=== PATIENT | female | born 2000 | race Caucasian/White ===

== ENCOUNTER 2023-10-30 09:52 | Emergency (ER) | payer MEDICAID, SELFPAY ==
--- NOTE | ~2023-10-30 | XR_ITS ---
EXAMINATION: XR ANKLE, RIGHT CLINICAL INFORMATION: Fall on Sunday with right ankle pain COMPARISON: 02/16/2018 TECHNIQUE: AP, lateral, and mortise views of the right ankle. FINDINGS: There is soft tissue swelling present laterally. No fracture. Alignment is anatomic. No erosions. Joint spaces are maintained. No evidence of a definite ankle joint effusion. XR/XR ankle RT min 3V IMPRESSION: Soft tissue swelling laterally. No acute fractures.
[2023-10-30 10:08] VITALS: BP 126/82; PULSE 82; RESP 16; TEMP 36.6; O2SAT 100; BMI 21.6
--- NOTE | 2023-10-30 10:19 | ED_ITS ---
HPI - General Adult General Chief complaint: Extremity Injury, Lower Stated complaint: R ankle inj Time Seen by Provider: 10/30/23 10:19 Source: patient Mode of arrival: ambulatory Limitations: no limitations History of Present Illness HPI narrative: Patient is a 23 year old assigned female at with no reported medical history presenting to the emergency department today with right ankle pain. Patient states that 2 days ago she was at a wedding, in heels, when she rolled her right ankle. Patient denies any dizziness, lightheadedness, abdominal pain, nausea, vomiting, fever, chills, blurry vision, double vision, loss of vision, chest pain, difficulty breathing, shortness of breath, back pain, night sweats, pain with urination, increased urinary frequency, increased urinary urgency, blood in her urine or stool, syncope or a near syncopal episode, bowel incontinence, bladder incontinence, bowel retention, bladder retention, or any other complaints at this time. Onset (ago): day(s) (2) Location: right and lower extremity Severity: mild Severity scale (1-10): 3 Quality: aching and dull Pain Consistency: constant Relieving factors: none Exacerbating factors: movement Associated symptoms: denies other symptoms Treatments prior to arrival: none Related Data Allergies Allergy/AdvReac Type Severity Reaction Status Date / Time No Known Allergies Allergy Verified 10/30/23 10:11 [No Known Allergies*] Review of Systems Constitutional: Constitutional: Reports no additional constitutional complaints, Denies chills, Denies fever(s) and Denies night sweats Eyes: Eyes: Reports no additional eye complaints, Denies blurry vision, Denies change in vision, Denies diplopia, Denies eye discharge, Denies loss of vision and Denies eye pain ENT: Denies dizziness Cardiovascular: Cardiovascular: Reports no additional cardiovascular complaints, Denies chest pain, Denies lightheadedness, Denies Loss of Consciousness and Denies dyspnea Respiratory: Respiratory: Reports no additional respiratory complaints and Denies dyspnea Gastrointestinal: Gastrointestinal: Reports no additional gastrointestinal complaints, Denies abdominal pain, Denies melena, Denies hematochezia, Denies change in bowel habits and Denies change in stool character Genitourinary: Genitourinary: Denies hematuria, Denies urinary frequency, Denies dysuria, Denies urinary incontinence, Denies urinary hesitancy and Denies urinary urgency Musculoskeletal: Musculoskeletal: Reports no additional musculoskeletal complaints, Denies numbness and Denies tingling Comments: right ankle pain Neurologic: Denies dizziness, Denies loss of vision, Denies numbness and Denies tingling Psychiatric: Psychiatric: Reports no additional psychiatric complaints Endocrine: Endocrine: Reports no additional endocrine complaints Hematologic/Lymphatic: Hematologic/Lymphatic: Reports no additional hematologic/lymphatic complaints Allergic/Immunologic: Allergic/Immunologic: Reports no additional allergic/immunologic complaints PMFSH Past Medical History Attestation statement: The following information was validated with the patient. Source: old records reviewed and nursing notes reviewed Social History Social History Advance Directives: No Advance Directives Information Provided: Yes Physical Exam ED Vital Signs: Vital Signs - 24 hr 10/30/23 10:08 10/30/23 11:36 Temperature 97.8 F 98.9 F Pulse Rate 82 77 Respiratory Rate 16 16 Blood Pressure 126/82 121/74 Pulse Oximetry 100 100 Oxygen Delivery Method Room Air Room Air BMI result Body Mass Index 21.6 Const General: cooperative, no acute distress, alert and awake Nutritional Appearance: well nourished Orientation/consciousness: patient oriented x3 Limitations: no limitations HENMT Head: Yes normal to inspection and Yes atraumatic Ears: hearing grossly normal bilaterally and external ears normal General nose exam: Normal external nose present, no nasal discharge noted and no epistaxis Face and sinus: Yes normal facial exam, No abrasion and No laceration Mouth: Normal oral and palatal mucosa present, no drooling and no muffled voice Eyes General: appearance normal, both eyes and all related structures Periorbital: periorbital findings normal Eyelids: Yes eyelids normal Conjunctivae: conjunctivae normal Pupils: Equal, round and reactive pupils present EOM: EOMs intact bilaterally Neck Neck: Yes normal visual inspection, Yes full ROM and Yes no lymphadenopathy Chest Chest palpation & inspection: normal inspection of the chest Resp Effort & Inspection: normal respiratory effort and able to speak in complete sentences GI Inspection: Yes normal to inspection Neuro General: patient oriented x3 and moves all extremities Cranial nerves: Yes Equal, round and reactive pupils present Cognition (Neuro): normal cognition Motor exam (neuro): 5/5 motor strength present throughout Sensory Exam: Normal double simultaneous stimulation for sensation Coordination: [id number] test normal Extrem Other: minimal swelling to the lateral aspect of the right ankle as well as pain with palpation of the right ankle General: Yes full ROM and Yes capillary refill normal Psych Appearance: grossly normal Mental Status: mental status grossly normal Affect: normal affect Attitude: cooperative Thought process: Normal thought process present Thought content: Normal thought content present Insight: Good insight present (Psych) Procedures Orthopedic Splinting/Casting Injury #1: Side: right Lower Extremity Injury Location: ankle Lower Extremity Immobilizer: boot orthosis Medical Decision Making Medical Decision Making MDM Narrative: Patient is a 23 year old assigned female at with no reported medical history presenting to the emergency department today with right ankle pain. Patient's physical exam was as noted in the physical exam portion of this note. Patient's right ankle x-ray showed no acute process. I explained my physical exam findings as well as all test results to the patient. I answered all questions asked by the patient. Patient's right ankle was placed in a walking boot, without incident. Patient's PMS was intact prior to and after boot placement. I stressed the importance of the patient taking her medication as prescribed. I stressed the importance of the patient following up with her primary care provider and an orthopedic provider. I stressed the importance of the patient returning to the emergency department immediately if her symptoms were to worsen or if she were to develop any dizziness, shortness of breath, difficulty breathing, chest pain, blurry vision, loss of vision, nausea, vomiting, abdominal pain, fever, chills, back pain, or any other complaints. Patient verbalized agreement and understanding with this treatment plan and discharge. Differential Diagnosis Differential Diagnoses: The differential diagnosis associated with the presentation includes Right ankle fracture Right ankle sprain Right ankle strain Right ankle pain Admission/Observation Consideration of admission/observation: Escalation of care including admission/observation considered Patient would have been admitted to the hospital had her work up had any findings where hospital admission was appropriate and her clinical presentation warranted hospital admission. Independent Interpretation I performed an independent interpretation of an: Plain X-Ray Interpretation: My interpretation is in agreement with the radiologist's impression of this imaging study. EXAMINATION: XR ANKLE, RIGHT CLINICAL INFORMATION: Fall on Sunday with right ankle pain COMPARISON: 02/16/2018 TECHNIQUE: AP, lateral, and mortise views of the right ankle. FINDINGS: There is soft tissue swelling present laterally. No fracture. Alignment is anatomic. No erosions. Joint spaces are maintained. No evidence of a definite ankle joint effusion. XR/XR ankle RT min 3V IMPRESSION: Soft tissue swelling laterally. No acute fractures. Dictated By: Scot Ugarte MD Signed By: Electronically signed by Scot Ugarte MD 10/30/23 1059 Radiology Impression Discussion of test interpretation with radiology: I have reviewed the radiologist's reading. Discharge Plan Discharge Clinical Impression: Ankle sprain and strain Patient Disposition: Home, Self-Care Instructions: Ankle Sprain (DC) Additional Instructions: Follow up with your primary care provider and an orthopedic provider. Return to the emergency department immediately if your symptoms worsen or if you develop any dizziness, shortness of breath, difficulty breathing, chest pain, blurry vision, loss of vision, nausea, vomiting, abdominal pain, fever, chills, back pain, or any other complaints. Referrals: [facility] Family Medicine [Provider Group] (Call to establish and follow up with a primary care provider. If you already have a primary care provider, please follow up with them.) [facility] Primary [facility] [Provider Group] [facility] Primary [facility] [Provider Group] [facility] [Provider Group] (Call to establish and follow up with an orthopedic provider. ) Stand Alone Forms: Work/School Release Interventions: ED Discharge Assessment Last Done: 10/30/23 11:36 Discharge Date/Time: 10/30/23 11:37 Print Language: Hebrew
[2023-10-30 11:36] VITALS: BP 121/74; PULSE 77; RESP 16; TEMP 37.2; O2SAT 100
== END 2023-10-30 11:37 | disposition home or self-care (01) ==
PROVIDERS: Emergency Provider Emergency Medicine
DX: S93.401A Sprain of unspecified ligament of right ankle, initial encounter (principal); S96.911A Strain of unspecified muscle and tendon at ankle and foot level, right foot, initial encounter; X50.1XXA Overexertion from prolonged static or awkward postures, initial encounter; Y93.89 Activity, other specified; Y92.9 Unspecified place or not applicable; Y99.9 Unspecified external cause status
CPT/HCPCS: 73610; 99283

== ENCOUNTER 2023-11-09 09:04 | Outpatient (AMB) | payer MEDICAID, SELFPAY ==
[2023-11-09 09:05] VITALS: BMI 21.5
--- NOTE | 2023-11-09 09:05 | MHC.OFFVIS ---
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 Patient reports she was at a wedding on 10-28-2023 in heels and rolled her ankle. She states she is using advil for her pain with little relief. She does have the boot that helps. She is also having Right knee pain that radiates up to the hip. 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 She currently states she has improvement in her pain however her pain is aggravated with moving in a certain way. She has been wearing a boot for support with benefits. She finds mild relief with Advil. She reports she has pain in her right knee which radiates up to her hip. She also c/o popping in her hip as well as numbness and tingling in her whole leg after a whole day of work. 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 Review of Systems Const All systems reviewed & are unremarkable except as noted in HPI and below Physical Exam Vital Signs: BMI result Body Mass Index 21.5 Const General: cooperative, healthy appearing, comfortable, no acute distress, well developed and alert Orientation/consciousness: patient oriented x3 HEENT Head: Yes normal to inspection, Yes normocephalic and Yes atraumatic Eyes General: appearance normal, both eyes and all related structures Resp Effort & Inspection: normal respiratory effort and able to speak in complete sentences Cardio Rate: regular rate Peripheral pulses: Peripheral pulses 2+ throughout GI Palpation (GI): Soft to palpation Skin Lesions: no lesions Rashes: no rashes Neuro General: patient oriented x3 Extrem Other: Right ankle: Normal to inspection with trace swelling over the medial and lateral malleolus with tenderness along the soft tissues.No discomfort along the posterior aspect of the ankle, no deformity along the Achilles tendon, negative Oneal?s. No pain along the syndesmosis or anterior tibia. No laxity, NVI. Results Reviewed Results Reviewed: XR ankle RT min 3V IMPRESSION: Soft tissue swelling laterally. No acute fractures. Assessment & Plan Assessment & Plan (1) Right ankle sprain: Code(s): S93.401A - Sprain of unspecified ligament of right ankle, initial encounter Category: Medical Plan We discussed options which include PT, NSAIDs and bracing. The patient will defer on the brace today as she has her own and will proceed with PT and NSAIDs. If symptoms persist, the patient will contact me for an injection, otherwise, PRN. Orders: Orders PT Evaluation and Treatment 11/09/23 S93.401A - Sprain of unspecified ligament of right ankle, initial encounter Patient Instructions: Scribed for Michael Rene PA-C, by Marck Romeo medical affairs specialist, on 11/09/2023 at 9:00 AM EST. I, Michael Rene PA-C, have personally reviewed and agree with the information entered by the scribe. Coding Level of Care Code New Pt Level 3 (38831) Diagnoses Right ankle sprain S93.401A
== END 2023-11-09 09:39 | disposition home or self-care (01) ==
PROVIDERS: Visit Provider Physician Assistant
DX: S93.401A Sprain of unspecified ligament of right ankle, initial encounter (principal)
CPT/HCPCS: 99203

== ENCOUNTER → 2023-11-09 09:04 | Outpatient (BNVA) | payer MEDICAID, SELFPAY | PROVIDERS: Visit Provider Physician Assistant | DX: S93.401A Sprain of unspecified ligament of right ankle, initial encounter (principal) | CPT/HCPCS: 99202 ==

== ENCOUNTER 2024-01-22 09:00 | Outpatient (RCR) | payer MEDICAID, SELFPAY ==
--- NOTE | 2023-11-20 11:05 | MHC.PT.EP ---
[facility] [place] Office [place] Office [place] [facility] [address] [phone] F: [phone] F: [phone] F: [phone] F: [phone] Physical Therapy Plan of Care Date of Evaluation: 11/20/23 Date of Surgery: Diagnosis: Sprain of R ankle Assessment: Patient is a 23 year old R handed female who presents with s/s consistent with ankle sprain, R ankle pain. 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 Patient past medical history is unremarkable. Current impairments include pain, balance, ROM, strength, activity tolerance and functional mobility. Functional limitations include decreased ability to stand, walk, bike, exercise, work and perform all desired activities including jumping and hopping. Patient is motivated with good rehab potential. Skilled PT will address impairments and functional limitations in order to achieve goals. Frequency and Duration: The patient will be seen 2x/week for 5 weeks Short Term Goals: I with HEP - 2 weeks AROM WNL and pain free - 3 weeks Able to walk symmetrical gait, no boot - 3 weeks Material Mixer Goals: Strength 4+/5 - 5 weeks LEFS 66/80 - 5 weeks Return to PLOF 2/10 max pain - 5 weeks Treatment Plan: Modalities to reduce pain, spasms and effusion. Manual therapy to restore motion and function. Therapeutic exercise to improve strength and flexibility. Neuromuscular re-education for posture and balance. Therapeutic activities to return to functional activities of daily living. Electronically signed by: Daniel Velázquez, PT Please sign and return to therapist. Thank you for your referral.
--- NOTE | 2024-04-16 10:44 | MHC.PT.DC ---
[facility] [place] [facility] [place] [facility] [place] [facility] [address] [phone] F: [phone] F: [phone] F: [phone] F: [phone] Physical Therapy Discharge Report Diagnosis: Sprain of R ankle Date of Surgery: Date of Evaluation: 11/20/23 Date of Discharge: 02/26/24 Treatments to Date: 9 Cancellations to Date: No Shows to Date: Discharge Status: Achieved Goals Independent with HEP Discharge Summary: 01/22/24: I with HEP. ROM full. LEFS 66/80. Strength 4+/5 grossly. Max pain 1/10 with all activities. we discussed mechanics and all questions were answered. she is appropriate to d/c to HEP at this time. 01/03/24: pt progressing well but still with trendelenberg, weak hips. educated on this. innom position improved. 12/27/23: progressed TM walking. incline/decline. encouraged R SLR at home to promote innom symmetry as pt has L ant innom., 12/18/23: pt progressing well. single leg jumps with no pain today. she feels mostly better, less pain during the day and only episodic at this point. 12/14/23: pt progressing well overall. continued progression with higher level activities. min discomfort. fatigue noted. 12/04/23: pt progressing well with skilled PT. no adverse reactions from above. we progressed significantly today with skilled PT and standing ex. assess response and progress as tolerated 11/29/23: I with HEP. AROM WNL but with pain on inversion. Gait mechanics not symmetrical. Antalgic with reduced step length, arie and stance phase on R. Strength goals not met. Pain 4/10 at worst. Pt is motivated and compliant but has not progress/hit her STG/LTG completely. We will plan to continue 2x/week for 3 more weeks in order to address impairments and functional limitations and to ensure optimal return to PLOF. 11/26; Pt c/o pain with P/F. Pt tender with STM, but relief noted after it. Pt amb with limp due to pain. 11/22/23: pt progressing well. ROM improving as is swelling and TTP. continue to progress as tolerated. Patient is a 23 year old R handed female who presents with s/s consistent with ankle sprain, R ankle pain. 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 Patient past medical history is unremarkable. Current impairments include pain, balance, ROM, strength, activity tolerance and functional mobility. Functional limitations include decreased ability to stand, walk, bike, exercise, work and perform all desired activities including jumping and hopping. Patient is motivated with good rehab potential. Skilled PT will address impairments and functional limitations in order to achieve goals. Electronically signed by: Daniel Velázquez, PT Please sign and return to therapist. Thank you for your referral.
== END 2024-04-16 10:44 | disposition home or self-care (01) ==
LOC: HO.PTCHIC 09:00
PROVIDERS: Visit Provider Physician Assistant
DX: S93.401D Sprain of unspecified ligament of right ankle, subsequent encounter (principal)
CPT/HCPCS: 97110; 97112; 97161